=== PATIENT | male | born 1970 | race Hispanic/Latino ===

== ENCOUNTER 2018-03-17 18:55 | Emergency (ER) | payer MEDICARE ==
[2018-03-17] MEDS ORDERED: CYCLOBENZAPRINE HCL 10 MG TABLET ONE (20:06)
[2018-03-17] MEDS ORDERED: IBUPROFEN 600 MG TABLET ONE (20:06)
== END 2018-03-17 20:40 | disposition home or self-care (01) ==
LOC: EDH 18:55
DX: S19.9XXA Unspecified injury of neck, initial encounter (principal); S39.92XA Unspecified injury of lower back, initial encounter; E11.9 Type 2 diabetes mellitus without complications; Z79.4 Long term (current) use of insulin; Z91.012 Allergy to eggs; Z98.890 Other specified postprocedural states; V49.40XA Driver injured in collision with unspecified motor vehicles in traffic accident, initial encounter; Y93.89 Activity, other specified; Y92.410 Unspecified street and highway as the place of occurrence of the external cause; Y99.8 Other external cause status
CPT/HCPCS: 72040; 72100

== ENCOUNTER 2018-06-25 18:21 | Emergency (ER) | payer MEDICARE ==
[2018-06-25] MEDS ORDERED: KETOROLAC TROMETHAMINE 15MG/ML ONE (19:50)
== END 2018-06-25 20:02 | disposition home or self-care (01) ==
LOC: EDH 18:21
DX: S89.81XA Other specified injuries of right lower leg, initial encounter (principal); E11.9 Type 2 diabetes mellitus without complications; Z79.4 Long term (current) use of insulin; X50.1XXA Overexertion from prolonged static or awkward postures, initial encounter; Y93.89 Activity, other specified; Y92.89 Other specified places as the place of occurrence of the external cause; Y99.8 Other external cause status
CPT/HCPCS: 29505; 73562; 96372; 99283; J1885